=== PATIENT | female | born 1995 | race Caucasian/White ===

== ENCOUNTER 2019-12-13 14:57 | Emergency (ER) | payer OTHER ==
--- NOTE | 2019-12-13 15:21 | ER Document Report ---
ED Medical Screen (RME) - General Chief Complaint: Vaginal Bleeding Stated Complaint: VAGINAL BLEEDING/CRAMPING Time Seen by Provider: 12/13/19 15:15 Primary Care Provider: ANGEL HAYS MD [Primary Care Provider] - Follow up as needed Notes: HPI: 24-year-old female who is a G3, presenting for evaluation of vaginal bleeding and pelvic cramping that began today. She had a positive test at [facility] last week, believes she is approximately 5 weeks . Has had slight nausea no vomiting. I have greeted and performed a rapid initial assessment of this patient. A comprehensive ED assessment and evaluation of the patient, analysis of test results and completion of the medical decision making process will be conducted by additional ED providers PHYSICAL EXAMINATION: Examination limited by positioning in triage. No tenderness on palpation over the pelvis. No CVA tenderness. exam deferred in triage I have greeted and performed a rapid initial assessment of this patient. A com prehensive ED assessment and evaluation of the patient, analysis of test results and completion of medical decision making process will be conducted by an additional ED providers. - Related Data Allergies/Adverse Reactions: sertraline [From Zoloft] Allergy (Verified 12/13/19 15:12) Past Medical History - Social History Chew tobacco use (# tins/day): No Frequency of alcohol use: None Drug Abuse: None Neurological Medical History: Reports: Hx Migraine Endocrine Medical History: Reports: Hx Hypothyroidism Musculoskeltal Medical History: Reports Hx Arthritis, Reports Hx Musculoskeletal Deformity Psychiatric Medical History: Reports: Hx Anxiety, Hx Depression, Hx Post Traumatic Stress Disorder Past Surgical History: Reports: Hx Orthopedic Surgery - spinal fusion and scoliosis surgery - Immunizations Immunizations up to date: Yes Hx Diphtheria, Pertussis, Tetanus Vaccination: Yes Physical Exam - Vital signs Vitals: Temp Pulse Resp BP Pulse Ox 98.8 F 83 16 114/78 100 12/13/19 15:01 12/13/19 15:01 12/13/19 15:01 12/13/19 15:01 12/13/19 15:01 Course - Vital Signs Vital signs: Temp Pulse Resp BP Pulse Ox 98.8 F 83 16 114/78 100 12/13/19 15:01 12/13/19 15:01 12/13/19 15:01 12/13/19 15:01 12/13/19 15:01 Doctor's Discharge - Discharge Referrals: ANGEL HAYS MD [Primary Care Provider] - Follow up as needed
[2019-12-13 15:56] LABS: ABSOLUTE EOSINOPHILS # (AUTO) 0.1 10^3/uL (0.0-0.6); ABSOLUTE MONOCYTES (AUTO) 0.5 10^3/uL (0.1-1.4); ABSOLUTE NEUT (AUTO) 5.7 10^3/uL (1.7-8.2); BASOPHILS % (AUTO) 0.4 % (0-2); EOSINOPHILS % (AUTO) 0.9 % (0-6); HEMATOCRIT 39.5 % (36.0-47.0); HEMOGLOBIN 13.4 g/dL (12.0-15.5); LYMPHOCYTES % (AUTO) 24.3 % (13-45); MEAN CORPUSCULAR HEMOGLOBIN 28.1 pg (27.0-33.4); MEAN CORPUSCULAR HGB CONC 33.9 g/dL (32.0-36.0); MEAN CORPUSCULAR VOLUME 83 fl (80-97); MONOCYTES % (AUTO) 5.7 % (3-13); PLATELET COUNT 347 10^3/uL (150-450); RED BLOOD COUNT 4.77 10^6/uL (3.72-5.28); RED CELL DISTRIBUTION WIDTH 13.9 % (11.5-14.0); SEGMENTED NEUTROPHILS % (AUTO) 68.7 % (42-78); TOTAL CELLS COUNTED % (AUTO) 100 %; WHITE BLOOD COUNT 8.3 10^3/uL (4.0-10.5)
[2019-12-13 16:00] LABS: APPEARANCE,URINE CLEAR; BILIRUBIN,URINE NEGATIVE (NEGATIVE); COLOR,URINE YELLOW; GLUCOSE, URINE NEGATIVE (NEGATIVE); KETONES,URINE NEGATIVE (NEGATIVE); LEUKOCYTE ESTERASE,URINE NEGATIVE (NEGATIVE); NITRITE,URINE NEGATIVE (NEGATIVE); PROTEIN,URINE NEGATIVE (NEGATIVE); URINE SPECIFIC GRAVITY 1.021; UROBILINOGEN,URINE NEGATIVE mg/dL (<2.0)
--- NOTE | 2019-12-13 16:16 | ER Document Report ---
ED GI/ - General Chief Complaint: Vaginal Bleeding Stated Complaint: VAGINAL BLEEDING/CRAMPING Time Seen by Provider: 12/13/19 15:15 Primary Care Provider: ANGEL HAYS MD [ACTIVE STAFF] - Follow up as needed Mode of Arrival: Ambulatory Information source: Patient Notes: 24-year-old female presents to ED for complaint of pelvic pain dark red blood with clotting and stranding her hemoglobin is 13.4 hematocrit is 39.5 she does have a large amount of blood in her urine 71 RBCs. . She states she did have a positive at [facility] last week she believes she was about 5 weeks. States she has had some nausea no vomiting she does go to [place] [facility]. She states she is having the pain and bleeding just like up menstrual cycle. Was seen in triage before I saw her. Blood and ultrasound have been completed. Her ultrasound shows a 11 mm simple cyst on the right adnexa no adnexal fluid no masses the left adnexa is normal flow there is no visual intra-or extrauterine hCG quant is negative. - HPI Patient complains to provider of: Pelvic pain, Vaginal bleeding Onset: This morning Timing/Duration: Persistent Quality of pain: Cramping Severity at maximum: Moderate Severity in ED: Moderate Pain Level: 2 Location: Pelvis Vaginal bleeding (Compared to normal period): Similar LMP: 5 weeks : 3 Para: 1 Abortions: 1 OB ultrasound done: Yes Associated symptoms: Nausea, Other - Pelvic pain vaginal bleeding states she has been passing clots and dark red with some stranding probably tissue. Exacerbated by: Movement Relieved by: Denies Similar symptoms previously: No Recently seen / treated by doctor: No - Related Data Allergies/Adverse Reactions: sertraline [From Zoloft] Allergy (Verified 12/13/19 15:12) Past Medical History - General Information source: Patient - Social History Smoking Status: Former Smoker Chew tobacco use (# tins/day): No Frequency of alcohol use: None Drug Abuse: None Lives with: Spouse/Significant other Family History: DM, Malignancy, Thyroid Disfunction, Other - seizures Patient has suicidal ideation: No Patient has homicidal ideation: No - Past Medical History Cardiac Medical History: Reports: None Pulmonary Medical History: Reports: None EENT Medical History: Reports: None Neurological Medical History: Reports: Hx Migraine Endocrine Medical History: Reports: Hx Hypothyroidism Renal/ Medical History: Reports: None Malignancy Medical History: Reports: None GI Medical History: Reports: None Musculoskeletal Medical History: Reports Hx Musculoskeletal Deformity Skin Medical History: Reports None Psychiatric Medical History: Reports: Hx Anxiety, Hx Borderline Personality Disorder, Hx Depression, Hx Post Traumatic Stress Disorder Traumatic Medical History: Reports: None Infectious Medical History: Reports: None Past Surgical History: Reports: Hx Orthopedic Surgery - spinal fusion and scoliosis surgery - Immunizations Immunizations up to date: Yes Hx Diphtheria, Pertussis, Tetanus Vaccination: Yes Review of Systems - Review of Systems Constitutional: No symptoms reported EENT: No symptoms reported Cardiovascular: No symptoms reported Respiratory: No symptoms reported Gastrointestinal: No symptoms reported Genitourinary: No symptoms reported Female Genitourinary: - Was hCG and ultrasound negative now, Vaginal bleeding, Other - Pelvic discomfort passing clots and tissue Musculoskeletal: No symptoms reported Skin: No symptoms reported Hematologic/Lymphatic: No symptoms reported Neurological/Psychological: No symptoms reported -: Yes All other systems reviewed and negative Physical Exam - Vital signs Vitals: Temp Pulse Resp BP Pulse Ox 98.8 F 83 16 114/78 100 12/13/19 15:01 12/13/19 15:01 12/13/19 15:01 12/13/19 15:01 12/13/19 15:01 Interpretation: Normal - General General appearance: Appears well, Alert - HEENT Head: Normocephalic, Atraumatic Eyes: Normal Pupils: PERRL - Respiratory Respiratory status: No respiratory distress Chest status: Nontender Breath sounds: Normal Chest palpation: Normal - Cardiovascular Rhythm: Regular Heart sounds: Normal auscultation Murmur: No - Abdominal Inspection: Normal Distension: No distension Bowel sounds: Normal Tenderness: Nontender Organomegaly: No organomegaly - Genitourinary External exam: Normal Speculum exam: Cervix open Vaginal bleeding: Moderate Bimanuel exam: Normal - Back Back: Normal, Nontender - Extremities General upper extremity: Normal inspection, Nontender, Normal color, Normal ROM, Normal temperature General lower extremity: Normal inspection, Nontender, Normal color, Normal ROM, Normal temperature, Normal weight bearing. No: Brant's sign - Neurological Neuro grossly intact: Yes Cognition: Normal Orientation: AAOx4 Julia Coma Scale Eye Opening: Spontaneous Julia Coma Scale Verbal: Oriented Julia Coma Scale Motor: Obeys Commands Julia Coma Scale Total: 15 Speech: Normal Motor strength normal: LUE, RUE, LLE, RLE Sensory: Normal - Psychological Associated symptoms: Normal affect, Normal mood - Skin Skin Temperature: Warm Skin Moisture: Dry Skin Color: Normal Course - Re-evaluation Re-evalutation: 12/13/19 22:47 Discussed labs and ultrasound results with patient and written report of labs and ultrasound given to patient for follow-up with [facility]. Patient was able to verbalize understanding and agreement with treatment plan to discharge home with [id number] medications and follow-up with [facility]. - Vital Signs Vital signs: Temp Pulse Resp BP Pulse Ox 98.8 F 77 16 120/59 L 100 12/13/19 18:50 12/13/19 18:50 12/13/19 18:50 12/13/19 18:50 12/13/19 18:50 - Laboratory Result Diagrams: 12/13/19 15:30 12/13/19 15:30 Laboratory results interpreted by me: 12/13/19 12/13/19 15:30 15:30 Sodium 136.8 L Urine Blood LARGE H - Diagnostic Test Radiology reviewed: Image reviewed, Reports reviewed Discharge - Discharge Clinical Impression: Vaginal bleeding, Pelvic pain, Right ovarian cyst Condition: Stable Disposition: HOME, SELF-CARE Additional Instructions: Ovarian Cyst right Your examination shows the presence of an ovarian cyst. This is a ball of fluid attached to the ovary. Ovarian cysts in women of child-bearing age are usually innocent. However, the cyst may cause pain when it grows or bursts. An innocent ovarian cyst will usually go away by itself. When the cyst becomes painful, you should rest. Pain medication may be required. Some women find a hot water bottle soothing. The pain usually resolves within one or two days. After menopause, an ovarian cyst may mean a tumor, and requires more aggressive evaluation -- usually surgery is recommended to remove or biopsy the cyst. A very large cyst requires evaluation at any age. Most cysts (even the innocent ones) require follow-up examination. Call the doctor or return at any time if the pain increases significantly, if you become faint, or if you experience vaginal bleeding. Your test is negative today. Your ultrasound is negative for any . You state you had a positive hCG at the [facility] last week. As I have discussed with you and given you the lab results and ultrasound to show there is no at this time you have had a complete miscarriage. Please follow-up with your [facility] in the next 3 to 5 days. He will need to discuss with your [facility] when it is safe you to attempt to conceive again. It is usually sprague to wait 6 to 8 weeks to give your uterus time to rest. Your wet mount does not show any bacterial vaginosis, trichomonas, or yeast infection. Your gonorrhea and chlamydia test will not be ready for about 2 hours. If you would like to call tomorrow to [phone] they can give you the results of the gonorrhea and chlamydia test. FOLLOW-UP CARE: If you have been referred to a physician for follow-up care, call the [facility] office for an appointment as you were instructed or within the next two days. If you experience worsening or a significant change in your symptoms (very heavy bleeding with large clots of blood, passage of tissue, more severe abdominal / pelvic pain or cramping, feeling faint or severe weakness, fever, etc.), notify the physician immediately or return to the Emergency Department at any time for re-evaluation. OBSTETRIC-GYNECOLOGIC (OB-FILM PROCESS OPERATOR) PHYSICIANS IN [place]: [facility] [address] [place] [address] [phone] For active duty and dependents diagnosed with a threatened or miscarriage, you should follow up in the following manner: Standard patients who have a local civilian provider should follow up with that provider. Patients of the Family Practice Clinic should call your Team Nurse at 8:00 am the following morning for further instructions. If you are neither a Standard patient nor a patient of the Family Practice Clinic, you should follow up at the [facility] ([facility]). Patients already enrolled in the [facility] OB Clinic, Prime patients not assigned to the Family Practice Clinic, and Active Duty patients not assigned to Family Practice Clinic should report to the [facility] Lab at 8:00 am the next morning that the [facility] OB Clinic is open and then you will be seen in the OB Clinic at 11:00 am. Referrals: ANGEL HAYS MD [ACTIVE STAFF] - Follow up as needed
[2019-12-13 16:22] LABS: ALBUMIN 4.6 g/dL (3.5-5.0); ALKALINE PHOSPHATASE 52 U/L (38-126); ANION GAP 6 (5-19); ASPARTATE AMINO TRANSFERASE 28 U/L (14-36); BILIRUBIN,DIRECT 0.1 mg/dL (0.0-0.4); BILIRUBIN,TOTAL 0.4 mg/dL (0.2-1.3); BLOOD UREA NITROGEN 10 mg/dL (7-20); CALCIUM 9.6 mg/dL (8.4-10.2); CARBON DIOXIDE 28 mmol/L (22-30); CHLORIDE 103 mmol/L (98-107); GLUCOSE 92 mg/dL (75-110); POTASSIUM 4.3 mmol/L (3.6-5.0); TOTAL PROTEIN 7.6 g/dL (6.3-8.2)
--- NOTE | 2019-12-13 16:30 | RADIOLOGY REPORT (SQ) ---
EXAM DESCRIPTION: U/S OB TRANSVAG W/DOPPLER IMAGES COMPLETED DATE/TIME: 12/13/2019 4:13 pm REASON FOR STUDY: vag bleeding COMPARISON: None. TECHNIQUE: Transvaginal static and realtime grayscale images acquired of the pelvis. Additional jose g cted spectral and color Doppler images recorded. All images stored on PACs. CLINICAL AGE: Last menses 11/09/2027 BHCG: Patient states positive urine test at the OB office. Quantitative HCG is pending LIMITATIONS: None. FINDINGS: UTERUS: No visualized intrauterine . Uterus is 8 x 5 x 4 cm in size. Endometria l stripe 12 mm in thickness. Cervix closed, 2 cm in length. No nabothian cysts. RIGHT ADNEXA: Right ovary is 3 x 2.4 x 2.4 cm size, with normal color flow and Doppler waveforms. Si mple ovarian cyst 11 mm in diameter. No adnexal free fluid. No adnexal masses. LEFT ADNEXA: Normal ovary is 2.3 x 2.3 x 1.5 cm with normal vascular flow. No adnexal free fluid. No adnexal masses. FREE FLUID: None. OTHER: No other significant finding. IMPRESSION: NO VISUALIZED INTRA- OR EXTRAUTERINE . ECTOPIC CANNOT BE EXCLUDED. FOLLOW-UP ULTRASOUND AND SERIAL QUANTITATIVE BHCG LEVELS STRONGLY RECOMMENDED TO ACCURATELY ASSESS [place] EGNANCY STATUS. TECHNICAL DOCUMENTATION: JOB ID: [id number] [email or web address]- All Rights Reserved Reading location - IP/workstation name: [id number]
[2019-12-13 17:32] LABS: RBCS (WET MOUNT) 4+ RBCS SEEN; T.VAGINALIS (WET MOUNT) NO TRICHOMONAS SEEN; WBCS (WET MOUNT) 2+ WBCS SEEN; YEAST (WET MOUNT) NO YEAST SEEN
[2019-12-13 17:33] LABS: BACTERIA (WET MOUNT) 3+ BACTERIA SEEN
[2019-12-13 18:51] VITALS: BP 120/59
[2019-12-13 19:03] LABS: CHLAM PCR NOT DETECTED (NOT DETECT)
== END 2019-12-13 18:51 | disposition home or self-care (01) ==
LOC: ER 14:57
DX: N93.9 Abnormal uterine and vaginal bleeding, unspecified (principal); N83.291 Other ovarian cyst, right side; R10.2 Pelvic and perineal pain; R11.0 Nausea; Z88.8 Allergy status to other drugs, medicaments and biological substances; Z87.891 Personal history of nicotine dependence
CPT/HCPCS: 36415; 76817; 80053; 81001; 84702; 85025; 86900; 86901; 87210; 87491; 87591; 93976; 99284